=== PATIENT | female | born 1980 | race American Indian/Alaskan Native ===

== ENCOUNTER 2022-03-04 00:34 | Emergency (ER) | payer MEDICAID, OTHER ==
[2022-03-04] MEDS ORDERED: Fluconazole 100 MG Tab PO ONE (00:35)
[2022-03-04 01:44] LABS: ANION GAP 11.1 mEq/L (7-13)
[2022-03-04] MEDS ORDERED: Iopamidol 612 MG/ML 100 ML Bottle IVPUSH ONE (02:24)
[2022-03-04] MEDS ORDERED: Potassium Chloride 10 MEQ Tab.ER PO ONE (02:24)
[2022-03-04] MEDS ORDERED: Fluconazole 100 MG Tab ONE (05:49)
== END 2022-03-04 05:55 | disposition home or self-care (01) ==
LOC: DL.ED 00:34
DX: B37.3 Candidiasis of vulva and vagina (principal); K21.9 Gastro-esophageal reflux disease without esophagitis; F17.210 Nicotine dependence, cigarettes, uncomplicated; Z79.899 Other long term (current) drug therapy
CPT/HCPCS: 36415; 74177; 80053; 81001; 83735; 85025; 87070; 99283; A9270; Q9967; 87077; 87186

== ENCOUNTER 2025-01-02 11:45 | Emergency (ER) | payer MEDICAID ==
[2025-01-02] MEDS: Lidocaine 1% with EPINEPHrine 1:100,000 20 ML MDV INJECT ONE (12:19)
[2025-01-02] MEDS: Bupivacaine 0.5%/EPINEPHrine 1:200,000 10 ML SDV INJECT ONE (12:52)
== END 2025-01-02 13:00 | disposition home or self-care (01) ==
LOC: DL.ED 11:45
DX: K04.7 Periapical abscess without sinus (principal); I10 Essential (primary) hypertension; K21.9 Gastro-esophageal reflux disease without esophagitis; F17.210 Nicotine dependence, cigarettes, uncomplicated; Z90.710 Acquired absence of both cervix and uterus
CPT/HCPCS: 10060; 41800; 99282; 99282-25; J2004